=== PATIENT | female | born 1970 | race Asian ===

== ENCOUNTER → 2019-01-22 | Outpatient (CLI) | payer BC, OTHER ==
[~2019-01-22] MED LIST: ANAS1 PO; ANASTROZOLE PO; OXYC5 PO; TRAZ50 PO; ZOLP10 PO
== END | disposition home or self-care (01) ==
LOC: PLD 13:26 → LAB SHORT 13:26
DX: R87.618 Other abnormal cytological findings on specimens from cervix uteri (principal)
CPT/HCPCS: 88305; 88341; 88342

== ENCOUNTER 2019-01-24 08:56 | Day surgery (SDC) | payer BC, OTHER ==
[~2019-01-24] VITALS: Ht 142.2 cm; Wt 57.4 kg
[~2019-01-24 08:56] MED LIST changes: -ANAS1 PO; -TRAZ50 PO
--- NOTE | 2019-01-24 10:32 | NUR ---
01/24/19 1032 Bethany Nguyen 1018 PT. WAS UPDATED THAT WAS RUNNING BEHIND. PT. STATED "I'M FINE." CALL LIGHT GIVEN TO PT. PT. VERBALIZES BEING WARM ENOUGH.
== END 2019-01-24 11:50 | disposition home or self-care (01) ==
LOC: ORSCSDS 08:56
PROVIDERS: Student in an Organized Health Care Education/Training Program
PROC: 0DBN8ZX Excision of Sigmoid Colon, Via Natural or Artificial Opening Endoscopic, Diagnostic (ICD-10-PCS; principal; 2019-01-24 10:15)
PROC: 0DBL8ZX Excision of Transverse Colon, Via Natural or Artificial Opening Endoscopic, Diagnostic (ICD-10-PCS; principal; 2019-01-24 10:15)
DX: Z12.11 Encounter for screening for malignant neoplasm of colon (principal); D12.3 Benign neoplasm of transverse colon; D12.5 Benign neoplasm of sigmoid colon; K64.8 Other hemorrhoids; E66.9 Obesity, unspecified; Z68.36 Body mass index [BMI] 36.0-36.9, adult; Z79.899 Other long term (current) drug therapy
CPT/HCPCS: 88305; J2704; J7120

== ENCOUNTER 2019-05-13 18:51 | Inpatient (IN) | payer BC, OTHER ==
[~2019-05-13] VITALS: Ht 144.8 cm; Wt 54.5 kg
[2019-05-13 19:41] LABS: BASOPHILS ABSOLUTE AUTO 0.04 K/mm3 (0.00-0.23); BASOPHILS PERCENT AUTO 0 % (0-2); EOSINOPHILS PERCENT AUTO 0 % (0-6); Hematocrit 43.6 % (33.0-51.0); Hemoglobin 14.2 g/dL (11.5-16.0); IMMATURE GRAN ABSOLUTE AUTO 0.03 K/mm3 (0.00-0.10); IMMATURE GRAN PERCENT AUTO 0 % (0-1); LYMPHOCYTES ABSOLUTE AUTO 1.81 K/mm3 (0.84-5.20); LYMPHOCYTES PERCENT AUTO 18 % (21-46); MONOCYTES ABSOLUTE AUTO 0.84 K/mm3 (0.16-1.47); MONOCYTES PERCENT AUTO 8 % (4-13); Mean Corpuscular HGB 27.6 pg (26.0-34.0); Mean Corpuscular HGB Conc 32.6 g/dL (31.5-36.5); Mean Corpuscular Volume 85 fL (80-100); NEUTROPHILS ABSOLUTE AUTO 7.23 K/mm3 (1.96-9.15); NEUTROPHILS PERCENT AUTO 73 % (41-73); Platelet Count 376 K/mm3 (150-400); RDW Coefficient Variation 12.1 % (11.7-14.2); RDW Standard Deviation 37.4 fL (35.1-46.3); Red Blood Cell Count 5.15 M/mm3 (3.80-5.20); White Blood Cell Count 9.95 K/mm3 (4.00-11.30)
[2019-05-13 19:59] LABS: Ethanol (Alcohol), Blood, Med <3 mg/dL
[2019-05-13 20:00] LABS: Alanine Aminotransfer (ALT/SGP 45 U/L (12-78); Albumin, Blood 4.9 g/dL (3.4-5.0); Albumin/Globulin Ratio 1.3 (0.8-1.8); Alk Phos 66 U/L (50-136); Anion Gap 9 mmol/L (6-16); Aspartate Aminotrans (AST/SGOT 26 U/L (12-37); Bilirubin, Total 0.6 mg/dL (0.1-1.0); Blood Urea Nitrogen 10 mg/dL (8-24); Bun/Creatinine Ratio 16.8 (12.0-20.0); CO2, Blood 25 mmol/L (21-32); Calcium, Blood 8.9 mg/dL (8.5-10.1); Chloride, Blood 104 mmol/L (98-108); Globulin, Blood 3.9 g/dL (2.2-4.0); Glomerular Filtration Rate >60 (60-); Glucose, Blood 133 mg/dL (70-99); Potassium, Blood 3.6 mmol/L (3.5-5.5); Sodium, Blood 138 mmol/L (136-145); Total Protein, Blood 8.8 g/dL (6.4-8.2)
[2019-05-13 20:24] LABS: CPK Creatine Kinase 282 U/L (26-193); Magnesium, Blood 2.9 mg/dL (1.6-2.4)
[2019-05-13 20:58] LABS: Creatine Kinase MB 1.9 ng/mL (0.0-3.6); Creatine Kinase MB Index 0.7 (0.0-4.0); Troponin I <0.015 ng/mL (0.000-0.040)
[2019-05-13] MEDS ORDERED: TRAZ50 PO (21:47)
[2019-05-13 21:53] LABS: Source, Urine Clean Catch
[2019-05-13 22:00] LABS: Bilirubin, Urine Neg (Neg); Blood, Urine 5+ (Neg); Glucose Qualitative, Urine Neg (Neg); Ketones, Urine 4+ (Neg); Leukocyte Esterase, Urine 3+ (Neg); Nitrite, Urine Pos (Neg); Protein, Urine 3+ (Neg); Specific Gravity, Urine 1.015 (1.003-1.022); Urobilinogen, Urine NORM (Normal)
[2019-05-13 22:15] LABS: Appearance, Urine Hazy (Clear); Color, Urine Yellow (P-Yellow)
[2019-05-13 22:28] LABS: Bacteria Many /hpf; Squamous Epithelial Cells Few /hpf (Few)
[2019-05-13 22:29] LABS: U Amphetamine Screen Not Detected; U Barbituate Screen Not Detected; U Benzodiazapine Screen Not Detected; U Buprenorphine Screen Not Detected; U Cannabinoids Screen Not Detected; U Cocaine Screen Not Detected; U Methadone Screen Not Detected; U Methamphetamine Screen Not Detected; U Opiates Screen Not Detected; U Oxycodone Screen Not Detected; U Phencyclidine Screen Not Detected; U Propoxyphene Screen Not Detected; White Blood Cells, Urine 25-50 /hpf (0-5)
--- NOTE | 2019-05-14 01:15 | NUR ---
ADMIT 49 YEAR OLD FEMALE TO ICU [address] [employer] [facility] PER [facility]ESA VIA ER. TRANSFER TO BED USING SLIDER SHEET. ACCOMPANIED BY SPOUSE AT BEDSIDE WHO IS ATTENTIVE TO NEEDS AND CARES AND ASSISTS WITH ADMIT. PT IS NON VERBAL NOT FOLLOWING REQUESTS OR DIRECTION. SPOUSE STATES: THIS IS NOT NORMAL FOR HER". STATES SHE HAS NOT EATEN OR SLEPT FOR FOUR DAYS. MONITOR PLACED SHOWING SINUS TACT HEART RATE 90'S-100'S APPEARS TO BE GUARDING SELF FEARFUL VERY MODEST WANTING TO KEEP SELF COVERED. APPEARS TO TAKE COMFORT FROM SPOUSE BEING PRESENT.LUNGS CLEAR RESPIRATION REGULAR AND EASY WITH SPO2 98% ON ROOM AIR INCONTINENT OF URINE PLACED IN ATTENDS. ABDOMEN SOFT WITH BOWEL SOUNDS FOUR QUADS. TUCKER WELL SKIN WARM DRY INACT PEDAL PULSES PRESENT NO EDEMA NOTED. CONTINUE TO MONITOR AND REPORT CHANGE IN PATIENT CONDITION. URINE NOTED TO HAVE VERY STRONG ODOR
[2019-05-14 03:38] LABS: BASOPHILS ABSOLUTE AUTO 0.04 K/mm3 (0.00-0.23); BASOPHILS PERCENT AUTO 0 % (0-2); EOSINOPHILS ABSOLUTE AUTO 0.01 K/mm3 (0.00-0.68); EOSINOPHILS PERCENT AUTO 0 % (0-6); Hematocrit 39.1 % (33.0-51.0); Hemoglobin 12.6 g/dL (11.5-16.0); IMMATURE GRAN ABSOLUTE AUTO 0.03 K/mm3 (0.00-0.10); IMMATURE GRAN PERCENT AUTO 0 % (0-1); LYMPHOCYTES ABSOLUTE AUTO 1.66 K/mm3 (0.84-5.20); LYMPHOCYTES PERCENT AUTO 14 % (21-46); MONOCYTES ABSOLUTE AUTO 1.07 K/mm3 (0.16-1.47); MONOCYTES PERCENT AUTO 9 % (4-13); Mean Corpuscular HGB 27.7 pg (26.0-34.0); Mean Corpuscular HGB Conc 32.2 g/dL (31.5-36.5); Mean Corpuscular Volume 86 fL (80-100); Mean Platelet Volume 8.7 fL (9.1-12.4); NEUTROPHILS ABSOLUTE AUTO 9.05 K/mm3 (1.96-9.15); NEUTROPHILS PERCENT AUTO 76 % (41-73); Platelet Count 326 K/mm3 (150-400); RDW Coefficient Variation 12.4 % (11.7-14.2); RDW Standard Deviation 39.3 fL (35.1-46.3); Red Blood Cell Count 4.55 M/mm3 (3.80-5.20); White Blood Cell Count 11.86 K/mm3 (4.00-11.30)
[2019-05-14 03:56] LABS: Alanine Aminotransfer (ALT/SGP 34 U/L (12-78); Albumin, Blood 4.1 g/dL (3.4-5.0); Albumin/Globulin Ratio 1.2 (0.8-1.8); Alk Phos 57 U/L (50-136); Anion Gap 8 mmol/L (6-16); Aspartate Aminotrans (AST/SGOT 18 U/L (12-37); Bilirubin, Total 0.4 mg/dL (0.1-1.0); Blood Urea Nitrogen 9 mg/dL (8-24); Bun/Creatinine Ratio 14.2 (12.0-20.0); CO2, Blood 23 mmol/L (21-32); Calcium, Blood 7.6 mg/dL (8.5-10.1); Chloride, Blood 111 mmol/L (98-108); Creatinine, Blood 0.64 mg/dL (0.40-1.00); Globulin, Blood 3.5 g/dL (2.2-4.0); Glomerular Filtration Rate >60 (60-); Glucose, Blood 113 mg/dL (70-99); Potassium, Blood 3.6 mmol/L (3.5-5.5); Sodium, Blood 142 mmol/L (136-145); Total Protein, Blood 7.6 g/dL (6.4-8.2)
--- NOTE | 2019-05-14 04:14 | NUR ---
NEURO ADDENDUM ASSISTS WITH REPOISITIONING.CONTINUES TO BE VERY MODEST HOLDS GOWN TO SELF. DOES NOT ASSIST WITH ATTENDS CHANGE SPEAKS FEW WORDS AND SMILES AT SPOUSE. FOLLOWS SOME DIRECTIONS HOWEVER NOT CONCSISTENTLY YANCI EQUI STRENGTH IN EXTREMITIES. RETURNS TO SLEEP QUICKLY CONTINUE TO MONITOR AND REPORT CHANGE IN PATIENT CONDITION
--- NOTE | 2019-05-14 06:07 | NUR ---
SHIFT SUMMARY: RESTS QUIETLY WHEN UNDISTURBED. MONITOR INTACT SHOWING SINUS RHYTHM. HEART RATE 90'S. LUNG SOUNDS COARSE RHONCHI. O2 IN PLACE AT 3L/IN SPO2 94% ABDOMEN SOFT WITH BOWEL SOUNDS FOUR QUADS.WHITEHEAD PATENT DRAINING GIA URINE TF INFUSING PIVIOT PER DOBHOFF AT 25ML/HR. 20ML RESIDUAL REFED. PAS TO LOWER EXTREMITIES. L ARM CONTRACTURED. LEGS FLACCID. EXTREMITIES ELEVATED ON PILLOWS SECONDARY TO GENERALIZED DEPENDENT EDEMA. LARGE AMOUNT THIN SECRETIONS ORALLY. CONTINUE TO MONITOR AND REPORT CHANGE IN PATINET CONDITNION ANSWERS SIMP;E YES/NO QUESTIONS APPRIOATLY. OCC SPEAKS IN SHORT SENTENCEDS/
--- NOTE | 2019-05-14 08:02 | NUR ---
PT SITTING UP IN BED AWAKE. AT BEDSIDE HOLDING PT'S HAND. PT'S ARMS ARE FLEXED AND RIDGID. PT APPEARS FEARFUL. PT IS ANSWERING QUESTIONS APPROPRIATELY; BUT SLOWLY AND WITH ONE TO TWO WORD ANSWERS. PT DOES SPEAK INDEPENDENTLY. STATES THAT SHE IS IMPROVING. PT REMAINS TACHY W RATE 100-120 AND HYPERTENSIVE W SBP 160-180'S. WILL MEDICATE. TEMP 99.6. PT DENIES C/O PAIN. PT IS ABLE TO DOZE INTERMITTENTLY.
--- NOTE | 2019-05-14 09:31 | NUR ---
ATTENDS CHANGED, INCONTINENT OF URINE. PT VERY FEARFUL DURING ATTENDS CHANGED IN SPITE OF CONSTANT REASSURANCE, PT REPEATIVELY WOULD PULL GOWN DOWN TO COVER SELF.
--- NOTE | 2019-05-14 09:55 | NUR ---
VARINDER RN IN TO SPEAK WITH PT BOTH SPEAK PRYDEINIG. PT SPEAKS MUCH BETTER IN LOWER [place] LANGUAGE. PER VARINDER PT IS STILL SOMEWHAT CONFUSED. PT ADAMANTLY REFUSES MS ASA. PT DOES AGREE TO TRY MRI. PT GIVEN INSTRUCTIONS IN PRYDEINIG TO TAKE ICE; TO EVALUATE SWALLOWING. PT HESITANT TO TAKE ICE AND DID NOT SUCK ON ICE; STARTED TO DROOL. ICE REMOVED FROM MOUTH; UNABLE TO SWALLOW SAFELY AT THIS TIME. PT GIVEN HYDRALAZINE IV FOR SBP 180-200. WILL CONTINUE TO MONITOR CLOSELY.
--- NOTE | 2019-05-14 11:59 | NUR ---
PT BACK FROM MRI, TOLERATED PROCEDURE WELL; APPEARS TO SLEEP T/O MRI. PT TREMULOUS TO UPPER BODY, HTN PERSIST DESPITE HYDRALAZINE. ORAL CAVITY WITH DECAYED AND FRESHLY PULLED TEETH. SOME BLEEDING NOTED. PLAQUE TO UPPER TEETH AND TONGUE. ORAL CARE W SUCTIONING PROVIDED.
--- NOTE | 2019-05-14 12:17 | NUR ---
PT SLEEPING, BP IMPROVED W SBP OF 157, NO TREMORS NOTED W SLEEP
--- NOTE | 2019-05-14 15:38 | NUR ---
DR MORENO IN AT 1400 TO SEE PT; SPOKE WITH PT'S WELL WHOM WAS AT BEDSIDE. [facility] AND NEUROLOGY CONSULT ORDERED. MESSAGE LEFT W DR BOB'S OFFICE AND MESSAGE LEFT W [facility] FOR DR MIRELES. ATIVAN 0.5MG IV GIVEN TO PT FOR RESTLESSNESS, AGITATION, AND OTHER SYMPTOMS THAT APPEAR TO BE POTENTIAL SEROTONIN SYNDROME. FAMILY AT BEDSIDE, PT SOMEWHAT IMPROVED WITH FAMILY DISTRACTION. NILESH PLACED AT 1400; PT WAS CONSISTANTLY TRYING TO CRAWL OUT OF BED. PT REMAINS VERY CONFUSED. FOLLOWS SOME DIRECTIONS BUT NOT ALL, PT IS REDIRECTABLE.
--- NOTE | 2019-05-14 16:00 | NUR ---
NO CAHNGE IN SHIFT ASSESSMENT FROM 1200 ASSESMENT
--- NOTE | 2019-05-14 16:12 | NUR ---
PT MUCH MORE RESTLESS, HR 136 WITH HYPERTENSION, TEMP 99.6. PT APPEARS PANICKED. ATIVAN 0.5MG IV GIVEN. FAMILY REMAINS AT BEDSIDE.
--- NOTE | 2019-05-14 18:32 | NUR ---
EEG COMPLETE. ATIVAN SEEMS TO HAVE HELPED PT; HTN IMPROVED, PT MORE CALM. PT ALTHOUGH CONFUSED COOPERATED W EEG. PT SLEEPING NOW
--- NOTE | 2019-05-14 20:00 | NUR ---
ASSUMED CARE OF PT AT 1915. REPORT RECEIVED. PT PRESENTS IN BED. NON VERBAL. IS ABLE TO MOVE HERSELF ABOUT IN BED. ASSISTED IN MOVING PT UP IN BED FOR HER COMFORT. NILESH ALEXANDER REMAINS ON SECONDARY TO HIGH RISK FOR FALL AND PT'S ALTERED MENTAL STATUS. WILL REVIEW CHART AND PLAN OF CARE FOR THIS PT.
--- NOTE | 2019-05-15 01:35 | NUR ---
PT'S TEMP AT MIDNIGHT WAS 100.0 TEMPORAL. ROOM WAS VERY WARM. REDUCED HEAT IN ROOM, AND SUBSEQUENT TEMP NOW AT 98.3 PT HAS BEEN ABLE TO FORMULATE SMALL SENTENCES AT TIMES. DOES MOSTLY REMAIN VERY WITHDRAWN. TEACHING DONE WITH PT. SHE DOES ASK WHERE SHE IS AT THIS TIME. WILL KEEP PT REORIENTED NECESSARY.
[2019-05-15 04:34] LABS: BASOPHILS ABSOLUTE AUTO 0.05 K/mm3 (0.00-0.23); BASOPHILS PERCENT AUTO 1 % (0-2); EOSINOPHILS ABSOLUTE AUTO 0.01 K/mm3 (0.00-0.68); EOSINOPHILS PERCENT AUTO 0 % (0-6); Hematocrit 37.5 % (33.0-51.0); Hemoglobin 11.9 g/dL (11.5-16.0); IMMATURE GRAN ABSOLUTE AUTO 0.07 K/mm3 (0.00-0.10); IMMATURE GRAN PERCENT AUTO 1 % (0-1); LYMPHOCYTES ABSOLUTE AUTO 2.14 K/mm3 (0.84-5.20); LYMPHOCYTES PERCENT AUTO 25 % (21-46); MONOCYTES ABSOLUTE AUTO 0.84 K/mm3 (0.16-1.47); MONOCYTES PERCENT AUTO 10 % (4-13); Mean Corpuscular HGB 27.5 pg (26.0-34.0); Mean Corpuscular HGB Conc 31.7 g/dL (31.5-36.5); Mean Corpuscular Volume 87 fL (80-100); Mean Platelet Volume 8.7 fL (9.1-12.4); NEUTROPHILS ABSOLUTE AUTO 5.49 K/mm3 (1.96-9.15); NEUTROPHILS PERCENT AUTO 64 % (41-73); Platelet Count 293 K/mm3 (150-400); RDW Coefficient Variation 12.5 % (11.7-14.2); RDW Standard Deviation 39.9 fL (35.1-46.3); Red Blood Cell Count 4.33 M/mm3 (3.80-5.20)
[2019-05-15 04:52] LABS: Albumin, Blood 3.8 g/dL (3.4-5.0); Anion Gap 11 mmol/L (6-16); Blood Urea Nitrogen 11 mg/dL (8-24); Bun/Creatinine Ratio 19.1 (12.0-20.0); CO2, Blood 19 mmol/L (21-32); Calcium, Blood 6.8 mg/dL (8.5-10.1); Chloride, Blood 115 mmol/L (98-108); Creatinine, Blood 0.58 mg/dL (0.40-1.00); Glomerular Filtration Rate >60 (60-); Glucose, Blood 77 mg/dL (70-99); Phosphorus, Blood 1.7 mg/dL (2.5-4.9); Potassium, Blood 3.2 mmol/L (3.5-5.5); Sodium, Blood 145 mmol/L (136-145)
--- NOTE | 2019-05-15 06:47 | NUR ---
CALL MADE TO DR STEEL WITH ABNORMAL LABS. ORDERS RECEIVED. PT TO BEGIN WITH CLEAR LIQUIDS AND ADVANCE ABLE. PT HAS BEEN UP TO COMMODE WITH ONE PERSON ASSIST. IS ABLE TO TELL STAFF SHE NEEDED TO URINATE. HAD BEEN INCONTINENT EARLIER. PT HAS NO S/S ADVERSE REACTIONS TO ANTIBIOTIC THERAPY TO NOTE. PT DOES DO HER OWN ORAL CARE WITH SWABS. PER REPORT HAD RECENTLY HAD SOME TEETH PULLED. ORDER RECEIVED FOR PERIDEX SWISH AND SPIT. WILL BEGIN THIS MORNING. WILL CONTINUE TO MONITOR PT, AND WILL REPORT OFF TO ONCOMING RN.
--- NOTE | 2019-05-15 07:00 | NUR ---
REPORT REPORT FROM BRIGETTE BURDEN. ASSUMED PT CARE. PER NOC RN PT RESTED SOME. WAS CONFUSED AND AGITATED ALOT OF THE NIGHT. EASILY REDIRECTED. BEDSIDE ROUNDING DONE. PT SAT UP, STATES SHE WANTS TO GO HOME. DISCUSSED WITH PT WHY SHE IS HERE. WATER AND JELLO PROVIDED. EXPLAINED TO PT THAT IF SHE TOLERATES THE CLEARS BREAKFAST WILL BE PROVIDED. PT VERBALIZED UNDERSTANDING.
--- NOTE | 2019-05-15 07:25 | NUR ---
ASSESSMENT CHARTED. VSS. PT DENIES PAIN. STATES "I NEED TO GO HOME" EXPLAINED TO PT THAT SHE IS IN THE ICU DUE TO A URINARY TRACT INFECTION. PT INQUIRES ABOUT MEDICATIONS THIS RN IS STARTING. DISCUSSED THAT SOME OF HER ELECTROLYTES WERE LOW THIS AM AND THE DOCTOR ORDERED MEDS TO REPLENISH THEM. PT AGREEABLE. DENIES NEED FOR TOILET AT THIS TIME.
--- NOTE | 2019-05-15 08:01 | NUR ---
CARMINE PALMA. PT SITTING UP IN BED EASILY TO EAT. USES UTENSILS APPROPRIATELY.
--- NOTE | 2019-05-15 08:35 | NUR ---
PT TOLERATED 100% BREAKFAST WITH NO ISSUES. SPOUSE TO ROOM.
--- NOTE | 2019-05-15 09:00 | NUR ---
COFFEE PROVIDED TO SPOUSE. PT MOOD GREATLY IMPROVED WITH SPOUSE PRESENT. PT DENIES FURTHER NEEDS.
--- NOTE | 2019-05-15 09:02 | NUR ---
NILESH REMOVED AT THIS TIME. INSTRUCTED PT TO LET STAFF KNOW OF ANY NEEDS. PT VERBALIZED UNDERSTANDING.
--- NOTE | 2019-05-15 09:44 | NUR ---
PT LYING ON LEFT SIDE. PT INTERACTING WITH SPOUSE. RADHA.
--- NOTE | 2019-05-15 10:39 | NUR ---
PT CONTINUES TO REST IN POSITION OF COMFORT WITH SPOUSE AT BEDSIDE. WILL DISCUSS STATUS CHANGE WITH DR HOPPER AND HOSPITALIST.
--- NOTE | 2019-05-15 10:56 | NUR ---
ASSISTED PT UP TO BSC. VOIDED WELL. PULLUP DRY. ASSISTED BACK TO BED FOR PT EVAL. ADDITIONAL VISITORS TO ROOM.
--- NOTE | 2019-05-15 11:15 | NUR ---
PT UP IN CHAIR WITH PHYSICAL THERAPY. PT DENIES NEEDS.
--- NOTE | 2019-05-15 12:30 | NUR ---
ASSISTED PT BACK TO BED. BLINDS CLOSED PER PT REQUEST.
--- NOTE | 2019-05-15 14:15 | NUR ---
HOSPITALIST ROUNDING DR MORENO TO ROOM FOR EVAL AND UPDATE. PLAN TO STOP IV FLUIDS, MONITOR TONIGHT. STATUS CHANGE TO MEDICAL WITH TELE.
--- NOTE | 2019-05-15 15:28 | NUR ---
TRANSFER OF CARE Assumed care of pt at 1445 from Chris BURDEN. Pt on room air. Sinus rhythm with occasional PACs per monitor. Pt alert and oriented, independent in room. Pt visiting with family at this time. Bed in lowest position. Call light in reach. Pt denies need at this time. Pt is medical floor status with telemetry.
--- NOTE | 2019-05-15 16:50 | NUR ---
DR NAVARROUFF IN TO SEE PT Plan of care discussed. Discussed pt's home med regimen and altered mental status- possibly due to UTI. Provider states he will talk to pt's doctor and may change medication orders.
--- NOTE | 2019-05-15 18:28 | NUR ---
SUMMARY Pt alert and oriented. Room air. Sinus rhythm. Independent in room. Dr Jacksonuff in to see pt. Adjustment made to medications. No additional changes since assumption of care. Will continue to closely monitor until care handoff and bedside report with oncoming RN.
--- NOTE | 2019-05-15 20:02 | NUR ---
ASSUMED CARE OF PT AT 1915. REPORT RECEIVED. PT PRESENTS SITTING AT EDGE OF BED EATING HER DINNER. PT HAS MULTIPLE GUESTS IN ROOM. VITAL SIGNS COMPLETED. WHEN DISCUSSING PT'S PLAN OF CARE FOR THE NIGHT. PT, WITHOUT WARNING, DECIDED SHE WAS GOING TO LEAVE THE HOSPITAL. WOULD NOT BE REDIRECTED BY THIS RN, OR BY HER GUESTS. DID NOT, AT FIRST, WAIT FOR HER IV'S TO BE REMOVED. SHE RELUCTANTLY ALLOWED. BOTH SALINE LOCKS REMOVED WITH CATHETER TIPS INTACT. PT WOULD ONLY WAIT JUST LONG ENOUGH FOR TAPE TO BE PLACED OVER SITES WITH GAUZE. DID NOT ALLOW PROPER TIME FOR HEMOSTATIS OF EACH SITE.
--- NOTE | 2019-05-15 22:33 | NUR ---
CALL HAS BEEN MADE TO PT'S CONCERNING PT LEAVING AMA. HE STATES THAT HE UNDERSTANDS. PT LEFT SOME OF HER BELONGINGS WHEN SHE LEFT. AWARE. WILL KEEP IN UNIT FOR KEEPING UNTIL THEY CAN RETRIEVE.
== END 2019-05-15 19:46 | disposition left against medical advice (07) | DRG 871 ==
LOC: ER 18:51 → ICUW 23:28 → ER 05-14 00:58 → ICUW 05-14 01:06
PROVIDERS: Family Medicine; Nurse Practitioner Acute Care; Physician Assistant; ADMIT Internal Medicine
DX: A41.9 Sepsis, unspecified organism (principal); G92 Toxic encephalopathy; N39.0 Urinary tract infection, site not specified; R47.01 Aphasia; C79.51 Secondary malignant neoplasm of bone; G47.00 Insomnia, unspecified; R63.0 Anorexia; C50.919 Malignant neoplasm of unspecified site of unspecified female breast; Z17.0 Estrogen receptor positive status [ER+]; R00.0 Tachycardia, unspecified; I10 Essential (primary) hypertension; R25.1 Tremor, unspecified; B96.20 Unspecified Escherichia coli [E. coli] as the cause of diseases classified elsewhere
CPT/HCPCS: 36415; 70450; 70496; 70498; 70551; 80053; 80069; 81001; 82140; 82550; 82553; 83605; 83735; 84145; 84484; 85025; 87040; 87077; 87086; 87186; 93005; 93010; 95819; 96361; 96374; 96375; 97161; 97530; 99285-25; G0480; J0360; J0610; J0696; J1170; J1200; J1630; J1650; J2060; J7030; J7060; Q9967

== ENCOUNTER 2019-05-15 23:53 | Emergency (ER) | payer BC, OTHER ==
[~2019-05-15] VITALS: Ht 149.9 cm; Wt 51.3 kg
[~2019-05-15 23:53] MED LIST changes: +TRAZ50 PO
[2019-05-16 00:47] LABS: BASOPHILS ABSOLUTE AUTO 0.04 K/mm3 (0.00-0.23); BASOPHILS PERCENT AUTO 0 % (0-2); EOSINOPHILS ABSOLUTE AUTO 0.01 K/mm3 (0.00-0.68); EOSINOPHILS PERCENT AUTO 0 % (0-6); Hematocrit 38.2 % (33.0-51.0); Hemoglobin 12.5 g/dL (11.5-16.0); IMMATURE GRAN ABSOLUTE AUTO 0.14 K/mm3 (0.00-0.10); IMMATURE GRAN PERCENT AUTO 1 % (0-1); LYMPHOCYTES ABSOLUTE AUTO 1.66 K/mm3 (0.84-5.20); LYMPHOCYTES PERCENT AUTO 12 % (21-46); MONOCYTES ABSOLUTE AUTO 0.95 K/mm3 (0.16-1.47); MONOCYTES PERCENT AUTO 7 % (4-13); Mean Corpuscular HGB 28.1 pg (26.0-34.0); Mean Corpuscular HGB Conc 32.7 g/dL (31.5-36.5); Mean Corpuscular Volume 86 fL (80-100); Mean Platelet Volume 8.9 fL (9.1-12.4); NEUTROPHILS ABSOLUTE AUTO 11.34 K/mm3 (1.96-9.15); NEUTROPHILS PERCENT AUTO 80 % (41-73); Platelet Count 327 K/mm3 (150-400); RDW Coefficient Variation 12.4 % (11.7-14.2); Red Blood Cell Count 4.45 M/mm3 (3.80-5.20); White Blood Cell Count 14.14 K/mm3 (4.00-11.30)
[2019-05-16 00:59] LABS: Alanine Aminotransfer (ALT/SGP 43 U/L (12-78); Albumin, Blood 4.2 g/dL (3.4-5.0); Albumin/Globulin Ratio 1.1 (0.8-1.8); Alk Phos 58 U/L (50-136); Anion Gap 9 mmol/L (6-16); Aspartate Aminotrans (AST/SGOT 46 U/L (12-37); Bilirubin, Total 0.3 mg/dL (0.1-1.0); Blood Urea Nitrogen 10 mg/dL (8-24); Bun/Creatinine Ratio 14.8 (12.0-20.0); CO2, Blood 22 mmol/L (21-32); Chloride, Blood 113 mmol/L (98-108); Creatinine, Blood 0.68 mg/dL (0.40-1.00); Globulin, Blood 3.7 g/dL (2.2-4.0); Glomerular Filtration Rate >60 (60-); Glucose, Blood 102 mg/dL (70-99); Potassium, Blood 3.3 mmol/L (3.5-5.5); Sodium, Blood 144 mmol/L (136-145); Total Protein, Blood 7.9 g/dL (6.4-8.2)
[2019-05-16 01:13] LABS: Calcium, Blood 9.1 mg/dL (8.5-10.1)
[2019-05-16 02:13] LABS: Source, Urine Catheter
[2019-05-16 02:18] LABS: Bilirubin, Urine Neg (Neg); Blood, Urine 4+ (Neg); Glucose Qualitative, Urine 1+ (Neg); Ketones, Urine 3+ (Neg); Leukocyte Esterase, Urine 1+ (Neg); Nitrite, Urine Neg (Neg); Protein, Urine 2+ (Neg); Specific Gravity, Urine 1.015 (1.003-1.022); Urobilinogen, Urine NORM (Normal)
[2019-05-16 02:24] LABS: Appearance, Urine Hazy (Clear); Color, Urine Pale Yellow (P-Yellow)
[2019-05-16 02:25] LABS: Amorphous Light ({null, 0-Heavy}); Bacteria Few /hpf; Calcium Oxalate Crystals Mod /hpf; Red Blood Cells, Urine 50-100 /hpf (0-2); Squamous Epithelial Cells Few /hpf (Few)
[2019-05-16 02:48] LABS: U Amphetamine Screen Not Detected; U Barbituate Screen Not Detected; U Benzodiazapine Screen DETECTED; U Buprenorphine Screen Not Detected; U Cannabinoids Screen Not Detected; U Cocaine Screen Not Detected; U Methadone Screen Not Detected; U Methamphetamine Screen Not Detected; U Opiates Screen Not Detected; U Oxycodone Screen Not Detected; U Phencyclidine Screen Not Detected; U Propoxyphene Screen Not Detected
== END 2019-05-16 03:04 | disposition home or self-care (01) ==
LOC: ER 23:53
PROVIDERS: Emergency Medicine
DX: R41.0 Disorientation, unspecified (principal); Z85.3 Personal history of malignant neoplasm of breast; Z79.899 Other long term (current) drug therapy
CPT/HCPCS: 80053; 81001; 85025; 87086; 99283

== ENCOUNTER 2019-05-20 16:16 | Observation (INO) | payer BC, OTHER ==
[~2019-05-20] VITALS: Ht 149.9 cm; Wt 52.2 kg
[2019-05-20 17:59] LABS: BASOPHILS ABSOLUTE AUTO 0.04 K/mm3 (0.00-0.23); BASOPHILS PERCENT AUTO 1 % (0-2); EOSINOPHILS ABSOLUTE AUTO 0.04 K/mm3 (0.00-0.68); EOSINOPHILS PERCENT AUTO 1 % (0-6); Hematocrit 41.9 % (33.0-51.0); Hemoglobin 13.5 g/dL (11.5-16.0); IMMATURE GRAN ABSOLUTE AUTO 0.03 K/mm3 (0.00-0.10); IMMATURE GRAN PERCENT AUTO 0 % (0-1); LYMPHOCYTES ABSOLUTE AUTO 1.67 K/mm3 (0.84-5.20); LYMPHOCYTES PERCENT AUTO 20 % (21-46); MONOCYTES ABSOLUTE AUTO 0.77 K/mm3 (0.16-1.47); MONOCYTES PERCENT AUTO 9 % (4-13); Mean Corpuscular HGB 27.2 pg (26.0-34.0); Mean Corpuscular HGB Conc 32.2 g/dL (31.5-36.5); Mean Corpuscular Volume 85 fL (80-100); NEUTROPHILS ABSOLUTE AUTO 5.76 K/mm3 (1.96-9.15); NEUTROPHILS PERCENT AUTO 69 % (41-73); Platelet Count 372 K/mm3 (150-400); RDW Coefficient Variation 12.2 % (11.7-14.2); RDW Standard Deviation 36.7 fL (35.1-46.3); Red Blood Cell Count 4.96 M/mm3 (3.80-5.20); White Blood Cell Count 8.31 K/mm3 (4.00-11.30)
[2019-05-20 18:08] LABS: International Normalized Ratio 1.01; Prothrombin Time Results 10.7 Sec (9.7-11.5)
[2019-05-20 18:12] LABS: Alanine Aminotransfer (ALT/SGP 54 U/L (12-78); Albumin, Blood 4.7 g/dL (3.4-5.0); Albumin/Globulin Ratio 1.3 (0.8-1.8); Alk Phos 55 U/L (50-136); Anion Gap 9 mmol/L (6-16); Aspartate Aminotrans (AST/SGOT 25 U/L (12-37); Bilirubin, Total 0.6 mg/dL (0.1-1.0); Blood Urea Nitrogen 8 mg/dL (8-24); Bun/Creatinine Ratio 15.4 (12.0-20.0); CO2, Blood 26 mmol/L (21-32); Calcium, Blood 9.5 mg/dL (8.5-10.1); Chloride, Blood 103 mmol/L (98-108); Creatinine, Blood 0.52 mg/dL (0.40-1.00); Ethanol (Alcohol), Blood, Med <3 mg/dL; Globulin, Blood 3.7 g/dL (2.2-4.0); Glomerular Filtration Rate >60 (60-); Glucose, Blood 105 mg/dL (70-99); Potassium, Blood 3.2 mmol/L (3.5-5.5); Sodium, Blood 138 mmol/L (136-145); Total Protein, Blood 8.4 g/dL (6.4-8.2)
[2019-05-20] MEDS ORDERED: OXYC5 PO (22:55)
[2019-05-20] MEDS ORDERED: ANAS1 PO (22:55)
[2019-05-20 23:35] LABS: U Amphetamine Screen Not Detected; U Barbituate Screen Not Detected; U Benzodiazapine Screen Not Detected; U Buprenorphine Screen Not Detected; U Cannabinoids Screen Not Detected; U Cocaine Screen Not Detected; U Methadone Screen Not Detected; U Methamphetamine Screen Not Detected; U Opiates Screen Not Detected; U Oxycodone Screen Not Detected; U Phencyclidine Screen Not Detected; U Propoxyphene Screen Not Detected
[2019-05-21 17:38] LABS: Salicylate <1.7 mg/dL (2.8-20.0)
[2019-05-21 17:58] LABS: Acetaminophen, Random <2.0 ug/mL (10.0-30.0)
[2019-05-23 20:04] LABS: Source, Urine Clean Catch
[2019-05-23 20:12] LABS: Bilirubin, Urine Neg (Neg); Blood, Urine 3+ (Neg); Glucose Qualitative, Urine Neg (Neg); Ketones, Urine Neg (Neg); Leukocyte Esterase, Urine Neg (Neg); Nitrite, Urine Neg (Neg); Protein, Urine Neg (Neg); Urobilinogen, Urine NORM (Normal)
[2019-05-23 20:14] LABS: Appearance, Urine Clear (Clear); Color, Urine Yellow (P-Yellow)
[2019-05-23 20:24] LABS: Amorphous Light (0-Heavy); Bacteria Not Seen /hpf; Red Blood Cells, Urine 0-2 /hpf (0-2); Squamous Epithelial Cells Not Seen /hpf (Few); White Blood Cells, Urine Not Seen /hpf (0-5)
== END 2019-05-24 13:33 | disposition other institution (70) ==
LOC: ER 16:16 → EOR 16:17 → ER 21:45 → EOR 21:45
PROVIDERS: Emergency Medicine; Physician Assistant; ADMIT Emergency Medicine
DX: F23 Brief psychotic disorder (principal); Z79.899 Other long term (current) drug therapy
CPT/HCPCS: 36415; 80053; 81001; 85025; 85610; 96372; 99285; G0378; G0480; J1200; J1630; J2060

== ENCOUNTER → 2019-06-14 | Outpatient (CLI) | payer BC, OTHER ==
[~2019-06-14] MED LIST changes: +ANAS1 PO
[2019-06-14 16:33] LABS: Source, Urine Clean Catch
[2019-06-14 17:29] LABS: Bilirubin, Urine Neg (Neg); Blood, Urine 3+ (Neg); Glucose Qualitative, Urine Neg (Neg); Ketones, Urine Neg (Neg); Leukocyte Esterase, Urine 3+ (Neg); Nitrite, Urine Neg (Neg); Protein, Urine Neg (Neg); Specific Gravity, Urine 1.015 (1.003-1.022); Urobilinogen, Urine NORM (Normal)
[2019-06-14 17:54] LABS: Amorphous Light (0-Heavy); Appearance, Urine Clear (Clear); Bacteria Many /hpf; Calcium Oxalate Crystals Mod /hpf; Color, Urine Yellow (P-Yellow); Hyaline Casts 0-2 /lpf (0-2); Mucus Light (0-Heavy); Squamous Epithelial Cells Few /hpf (Few)
== END ==
LOC: LAB SHORT 16:32 → LAB 16:32
PROVIDERS: Family Medicine
DX: R41.82 Altered mental status, unspecified (principal)
CPT/HCPCS: 81001; 87086

== ENCOUNTER 2021-07-31 16:24 | Observation (INO) | payer BC, OTHER ==
[~2021-07-31] VITALS: Ht 160 cm; Wt 59.0 kg
[2021-07-31 18:40] LABS: Source, Urine Clean Catch
[2021-07-31 18:44] LABS: BASOPHILS ABSOLUTE AUTO 0.09 K/mm3 (0.00-0.23); BASOPHILS PERCENT AUTO 2 % (0-2); EOSINOPHILS ABSOLUTE AUTO 0.01 K/mm3 (0.00-0.68); EOSINOPHILS PERCENT AUTO 0 % (0-6); Hematocrit 38.5 % (33.0-51.0); IMMATURE GRAN ABSOLUTE AUTO 0.01 K/mm3 (0.00-0.10); IMMATURE GRAN PERCENT AUTO 0 % (0-1); LYMPHOCYTES ABSOLUTE AUTO 1.28 K/mm3 (0.84-5.20); LYMPHOCYTES PERCENT AUTO 27 % (21-46); MONOCYTES ABSOLUTE AUTO 0.54 K/mm3 (0.16-1.47); MONOCYTES PERCENT AUTO 11 % (4-13); Mean Corpuscular HGB 33.7 pg (26.0-34.0); Mean Corpuscular HGB Conc 36.4 g/dL (31.5-36.5); Mean Corpuscular Volume 93 fL (80-100); NEUTROPHILS ABSOLUTE AUTO 2.87 K/mm3 (1.96-9.15); NEUTROPHILS PERCENT AUTO 60 % (41-73); Platelet Count 269 K/mm3 (150-400); RDW Coefficient Variation 12.4 % (11.7-14.2); RDW Standard Deviation 42.1 fL (35.1-46.3); Red Blood Cell Count 4.16 M/mm3 (3.80-5.20)
[2021-07-31 18:53] LABS: Appearance, Urine Clear (Clear); Bilirubin, Urine Neg (Neg); Blood, Urine 4+ (Neg); Color, Urine Yellow (P-Yellow); Glucose Qualitative, Urine Neg (Neg); Ketones, Urine 2+ (Neg); Leukocyte Esterase, Urine Neg (Neg); Nitrite, Urine Neg (Neg); Protein, Urine 3+ (Neg); Urobilinogen, Urine NORM (Normal)
[2021-07-31 19:07] LABS: Bacteria Few /hpf; Mucus Mod (0-Heavy); Renal Epithelial Few /hpf (0-Rare); Squamous Epithelial Cells Few /hpf (Few); White Blood Cells, Urine 0-2 /hpf (0-5)
[2021-07-31 19:10] LABS: U Amphetamine Screen Not Detected; U Barbituate Screen Not Detected; U Benzodiazapine Screen Not Detected; U Buprenorphine Screen Not Detected; U Cannabinoids Screen Not Detected; U Cocaine Screen Not Detected; U Methadone Screen Not Detected; U Methamphetamine Screen Not Detected; U Opiates Screen Not Detected; U Oxycodone Screen Not Detected; U Phencyclidine Screen Not Detected; U Propoxyphene Screen Not Detected
[2021-07-31 19:26] LABS: Acetaminophen, Random <2.0 ug/mL (10.0-30.0); Alanine Aminotransfer (ALT/SGP 39 U/L (12-78); Albumin, Blood 4.1 g/dL (3.4-5.0); Albumin/Globulin Ratio 1.2 (0.8-1.8); Alk Phos 52 U/L (50-136); Anion Gap 11 mmol/L (6-16); Aspartate Aminotrans (AST/SGOT 28 U/L (12-37); Bilirubin, Total 0.7 mg/dL (0.1-1.0); Blood Urea Nitrogen 21 mg/dL (8-24); Bun/Creatinine Ratio 30.7 (12.0-20.0); CO2, Blood 20 mmol/L (21-32); Calcium, Blood 8.5 mg/dL (8.5-10.1); Chloride, Blood 110 mmol/L (98-108); Creatinine, Blood 0.69 mg/dL (0.40-1.00); Ethanol (Alcohol), Blood, Med <3 mg/dL; Globulin, Blood 3.5 g/dL (2.2-4.0); Glomerular Filtration Rate >60 (60-); Glucose, Blood 139 mg/dL (70-99); Potassium, Blood 3.2 mmol/L (3.5-5.5); Salicylate <1.7 mg/dL (2.8-20.0); Sodium, Blood 141 mmol/L (136-145); Total Protein, Blood 7.6 g/dL (6.4-8.2)
[2021-07-31 23:13] LABS: Influenza A, PCR NEGATIVE (NEGATIVE); Influenza B, PCR NEGATIVE (NEGATIVE); Resp Syncytial Virus, PCR NEGATIVE (NEGATIVE); SARS-Cov-2 (COVID-19) PCR, MMC NEGATIVE (NEGATIVE)
[2021-08-01] MEDS ORDERED: IBRANCE100 M1 PO (12:19)
[2021-08-01] MEDS ORDERED: QUET25 PO (12:20)
== END 2021-08-03 11:36 | disposition home or self-care (01) ==
LOC: ER 16:24 → EOR 16:25
PROVIDERS: Physician Assistant; ADMIT Student in an Organized Health Care Education/Training Program
DX: F23 Brief psychotic disorder (principal); Z79.899 Other long term (current) drug therapy
CPT/HCPCS: 0241U; 70450; 80053; 81001; 81025; 85025; 86592; 93005; 93010; 96372; 99285-25; A9270; G0378; G0480; J1200; J1790; J2060; P9612

== ENCOUNTER → 2023-03-14 | Outpatient (CLI) | payer BC, OTHER ==
[~2023-03-14] MED LIST changes: +IBRANCE100 M1 PO; +QUET25 PO
[2023-03-15 16:09] LABS: HPV 16 Negative (Negative); HPV 18 Negative (Negative); HPV OTHER HR TYPES Negative (Negative)
== END | disposition home or self-care (01) ==
LOC: LAB 17:20 → LAB SHORT 17:20
PROVIDERS: Obstetrics & Gynecology
DX: Z01.419 Encounter for gynecological examination (general) (routine) without abnormal findings (principal)
CPT/HCPCS: 87624; G0145

== ENCOUNTER 2024-06-03 20:48 | Emergency (ER) | payer BC, OTHER ==
[~2024-06-03] VITALS: Ht 144.8 cm; Wt 45.4 kg
[2024-06-03] MEDS ORDERED: Ondansetron HCl 2 MG / ML 2ML Vial IV PRN (21:15)
[2024-06-03 22:26] LABS: BASOPHILS ABSOLUTE AUTO 0.04 K/mm3 (0.00-0.23); BASOPHILS PERCENT AUTO 1 % (0-2); EOSINOPHILS ABSOLUTE AUTO 0.04 K/mm3 (0.00-0.68); EOSINOPHILS PERCENT AUTO 1 % (0-6); Hematocrit 35.4 % (33.0-51.0); Hemoglobin 11.4 g/dL (11.5-16.0); IMMATURE GRAN ABSOLUTE AUTO 0.05 K/mm3 (0.00-0.10); IMMATURE GRAN PERCENT AUTO 1 % (0-1); LYMPHOCYTES ABSOLUTE AUTO 0.97 K/mm3 (0.84-5.20); LYMPHOCYTES PERCENT AUTO 14 % (21-46); MONOCYTES ABSOLUTE AUTO 0.35 K/mm3 (0.16-1.47); MONOCYTES PERCENT AUTO 5 % (4-13); Mean Corpuscular HGB 28.6 pg (26.0-34.0); Mean Corpuscular HGB Conc 32.2 g/dL (31.5-36.5); Mean Corpuscular Volume 89 fL (80-100); Mean Platelet Volume 9.3 fL (9.1-12.4); NEUTROPHILS ABSOLUTE AUTO 5.73 K/mm3 (1.96-9.15); NEUTROPHILS PERCENT AUTO 80 % (41-73); Platelet Count 306 K/mm3 (150-400); RDW Coefficient Variation 14.6 % (11.7-14.2); RDW Standard Deviation 46.7 fL (35.1-46.3); Red Blood Cell Count 3.98 M/mm3 (3.80-5.20); White Blood Cell Count 7.18 K/mm3 (4.00-11.30)
[2024-06-03 22:47] LABS: Albumin, Blood 3.6 g/dL (3.4-5.0); Albumin/Globulin Ratio 0.6 (0.8-1.8); Bilirubin, Total 1.3 mg/dL (0.1-1.0); Bun/Creatinine Ratio 16.1 (12.0-20.0); Calcium, Blood 9.2 mg/dL (8.5-10.1); Creatinine, Blood 0.81 mg/dL (0.40-1.00); Globulin, Blood 5.6 g/dL (2.2-4.0); Potassium, Blood 3.6 mmol/L (3.5-5.5); Total Protein, Blood 9.2 g/dL (6.4-8.2)
[2024-06-03 23:06] LABS: Source, Urine Clean Catch
[2024-06-03 23:09] LABS: Appearance, Urine Hazy (Clear); Bilirubin, Urine Neg (Neg); Blood, Urine 2+ (Neg); Color, Urine Yellow (P-Yellow); Glucose Qualitative, Urine Neg (Neg); Ketones, Urine 1+ (Neg); Leukocyte Esterase, Urine 2+ (Neg); Nitrite, Urine Neg (Neg); Protein, Urine 2+ (Neg); Urobilinogen, Urine 4+ (Normal)
[2024-06-03 23:22] LABS: Red Blood Cells, Urine 0-2 /hpf (0-2)
[2024-06-03 23:23] LABS: Amorphous Light (0-Heavy); Bacteria Many /hpf; Squamous Epithelial Cells Not Seen /hpf (Few)
[2024-06-04] MEDS ORDERED: ZOLPIDEM TARTRA10 MG PO (01:35)
[2024-06-04] MEDS ORDERED: Ondansetron HCl 2 MG / ML 2ML Vial IV ONE (02:55)
[2024-06-04] MEDS ORDERED: HYDROmorphone HCl/Pf 1MG SYR IV ONE (02:55)
[2024-06-04] MEDS ORDERED: NS 1,000 ML IV SCH (03:00)
[2024-06-04 06:32] VITALS: BP 148/71
[2024-06-04] MEDS ORDERED: MORP30 PO (10:03)
[2024-06-04] MEDS ORDERED: ONDA4ODT MM (10:03)
[2024-06-04] MEDS ORDERED: KLOXXADO8 MG (10:03)
== END 2024-06-04 10:09 | disposition home or self-care (01) ==
LOC: ER 20:48
PROVIDERS: Student in an Organized Health Care Education/Training Program
DX: C50.919 Malignant neoplasm of unspecified site of unspecified female breast (principal); C78.6 Secondary malignant neoplasm of retroperitoneum and peritoneum; Z79.899 Other long term (current) drug therapy; Z51.5 Encounter for palliative care
CPT/HCPCS: 74177; 80053; 81001; 83690; 85025; 87077; 87086; 87186; 96374-59; 96375; 99284; J1171; J2405; J7030; Q9967